=== PATIENT | female | born 1980 | race Caucasian/White ===

== ENCOUNTER → 2016-06-20 | Outpatient (CLI) | payer BC | LOC: MW.CHPM 09:22 | PROVIDERS: ATTEND Anesthesiology | DX: Z51.81 Encounter for therapeutic drug level monitoring (principal); Z79.891 Long term (current) use of opiate analgesic | CPT/HCPCS: 80305 ==

== ENCOUNTER → 2016-06-24 | Outpatient (CLI) | payer BC ==
--- NOTE | 2016-06-28 08:43 | CR ---
EXAMINATION: Cervical spine HISTORY: Pain COMPARISON: MRI dated 02/01/2012 TECHNIQUE: AP and lateral views FINDINGS/IMPRESSION: The cervical spinal alignment appears normal, the vertebral body heights and di sc spaces appear well maintained. Minimal marginal osteophytes are noted. The prevertebral soft tiss ues appear normal.
--- NOTE | 2016-06-28 09:31 | MR ---
EXAMINATION: MRI cervical spine without contrast HISTORY: Pain COMPARISON: 02/01/2012 TECHNIQUE: Multiplanar and multisequence images obtained of the cervical spine without contrast. FINDINGS: The cervical spinal alignment is normal. The vertebral body heights appear well maintained . There is no abnormal bone marrow signal. The cervical spinal cord signal is normal. The prevertebr al soft tissues are within normal limits. C2-C3: Unremarkable. C3-C4: Tiny diffuse disc bulge without significant spinal canal or neural foraminal stenosis. C4-C5: Tiny diffuse disc bulge without significant spinal canal or neural foraminal stenosis. C5-C6: Small to moderate diffuse disc bulge with mild spinal canal stenosis. Mild bilateral neural f oraminal stenosis. C6-C7: Small diffuse disc bulge without significant spinal canal stenosis. Minimal bilateral neural foraminal stenosis. C7-T1: Unremarkable. IMPRESSION: 1. Mild multilevel degenerative disc disease noted within the cervical spine without significant susy nges. Individual details above.
== END | disposition home or self-care (01) ==
LOC: MW.MRI 15:36
PROVIDERS: ATTEND Anesthesiology
DX: M50.30 Other cervical disc degeneration, unspecified cervical region (principal); M54.2 Cervicalgia; M12.88 Other specific arthropathies, not elsewhere classified, other specified site; M50.31 Other cervical disc degeneration, high cervical region
CPT/HCPCS: 72040; 72040-26; 72141; 72141-26

== ENCOUNTER → 2016-08-04 | Outpatient (CLI) | payer BC ==
--- NOTE | 2016-08-04 15:31 | CR ---
EXAMINATION: The lumbar spine HISTORY: Low back pain COMPARISON: None TECHNIQUE: AP, lateral, flexion and extension images FINDINGS: The lumbar spinal alignment is normal. The vertebral body heights and disc spaces appear w ell-maintained. Bone mineralization is normal. The SI joints are symmetric. Alignment and range of m otion appear normal with flexion and extension. IMPRESSION: Grossly unremarkable lumbar spine.
== END ==
LOC: MW.CHPM 08:55
PROVIDERS: ATTEND Anesthesiology
DX: Z51.81 Encounter for therapeutic drug level monitoring (principal); Z79.891 Long term (current) use of opiate analgesic; M54.5 Low back pain
CPT/HCPCS: 72110; 72110-26; 80305

== ENCOUNTER 2016-12-08 11:47 | Day surgery (SDC) | payer BC ==
[~2016-12-08 11:47] MED LIST: Betamethasone Acetate/Betamethasone Sod Phosphate 30 MG/5 ML MDV ONE; Lidocaine 2% 5 ML SDV ONE; Ropivacaine 0.5% 5 MG/ML 30 ML SDV ONE
--- NOTE | 2017-01-23 11:14 | OR ---
SURGEON: Cydney Grimaldo D.O. DATE OF PROCEDURE: 12/08/2016 OR STAFF: 1. Gwyn Fung RN. 2. Gwyn Sevilla RN. 3. Emmanuel Abebe, RT. REAL TIME ANALYST: Gwyn Fung RN; Gwyn Sevilla, RN; and Emmanuel Abebe, RT. WOUND CLASSIFICATION: Class I PREOPERATIVE DIAGNOSES: 1. Cervical facet arthropathy. 2. Chronic neck pain. 3. Cervical degenerative disk disease, multilevel. POSTOPERATIVE DIAGNOSES: 1. Cervical facet arthropathy. 2. Chronic neck pain. 3. Cervical degenerative disk disease, multilevel. PROCEDURES PERFORMED: 1. Right C3, C4, and C5 medial branch blocks. 2. Fluoroscopic guidance for needle placement. 3. Local with oral Valium for sedation. SCREENING QUESTIONS: The patient answered "No" to all the following questions: 1. Are you allergic to iodine, Betadine or latex? 2. Do you have a bleeding disorder? 3. Are you on anti-inflammatories or blood thinners? 4. Do you have any current local or systemic infections? MEDICAL NECESSITY: This is a patient with chronic low back pain who comes in for the above diagnostic procedure. This procedure is being performed in accordance with national guidelines written by the [employer]; please see medical necessity note in chart. DESCRIPTION OF PROCEDURE: The patient had the procedure thoroughly explained including risks, benefits and alternatives. Consent was signed in my clinic indicating understanding and willingness to proceed. The patient presented to [facility] and was escorted to the dressing room to disrobe and change into a hospital gown. Preoperative history and screening were performed by my nurse. Vital signs were taken and stable. The patient reported that Valium 10 milligrams was taken prior to the procedure. The patient was brought back to the procedure room and placed in the prone position on the procedure room table on the [facility] table. A pillow was placed under the legs in for patient comfort. The posterior neck was prepped with ChloraPrep and sterilely draped. All personnel in the procedure room were dressed in appropriate attire including surgical scrubs, head and shoe covers. This was to ensure sterility while in the treatment room. During the time fluoroscopy was in use all personnel in the operating room wore lead garcia with thyroid collars. Sterile technique was used during the procedure. The fluoroscope was positioned to provide AP/Lateral and then right oblique views. Then the right C3 medial branch block was begun by anesthetizing the skin and soft tissues with 2 cubic centimeters of 2% Preservative-Free Lidocaine with a 25-gauge 1.5 inch needle. There were no signs of infection at the site of needle skin insertions. Using fluoroscopic guidance a sterile 22-gauge 3.0 inch spinal needle was positioned at the midpoint of the waist of the articular pillar,parallel to the medial branch. Precise needle placement was confirmed by fluoroscopy and 0.2 cubic centimeters of IsoVue-200 contrast dye which wasinjected through microbore tubing under live fluoroscopy and showed no intravascular flow pattern and adequate flow over the target C3 medial branch. Then 0.5 cubic centimeters of celestone and 0.5% Ropivacaine Preservative-Free was injected slowly without complications after negative aspiration. Then the fluoroscope was positioned to provide a right oblique view for the right C4 medial branch. This was begun by anesthetizing the skin and soft tissues. The fluoroscope was positioned and a sterile 22-gauge 3.0 inch needle was positioned at the midpoint of the waist of the articular pillar, parallel to the medial branch. Precise needle placement was confirmed by fluoroscopy. Then 0.2 cubic centimeters of IsoVue-200 contrast dye was injected through microbore tubing under live fluoroscopy and showed no intravascular flow pattern and adequate flow over the target medial branch. After negative aspiration, 0.5 cubic centimeters of celestone and 0.5% Ropivacaine was injected without complications. The fluoroscope was then positioned to provide a right C5 medial branch block. This was begun by anesthetizing the skin and soft tissues. Then using fluoroscopic guidance, a sterile 22-gauge 3.5 inch spinal needle was positioned at the midpoint of the waist of the articular pillar, parallel to the medial branch. Precise needle placement was confirmed by fluoroscopy in AP and oblique views, and 0.2 cubic centimeters of IsoVue-200 contrast dye was injected through microbore tubing under live fluoroscopy and showed no intravascular flow pattern and adequate flow over the target nerves. After negative aspiration, 0.5 cubic centimeters of celestone and 0.5% Ropivacaine was injected. No complications were noted. The procedure was well tolerated and vital signs were stable during and after the procedure. The staff escorted the patient to the recovery area. The patient was given both oral and written discharge and followup instructions. The patient will follow up with a pain diary which will be evaluated over this evening doing things that would normally cause pain. We will evaluate the efficacy of the diagnostic cervical medial branch blocks as the patient will follow up in the clinic the next day. The patient was given both oral and written discharge and followup instructions. The patient voiced understanding including understanding of those signs and symptoms that would require emergency care and knows how to contact the office if there are any questions or concerns in the meantime. PREOPERATIVE PAIN: 09/26. POSTOPERATIVE PAIN: 04/29. CED / ANGELINA /[id number] AIRAM
== END 2016-12-08 13:52 | disposition home or self-care (01) ==
LOC: MW.SDS 11:47
PROVIDERS: ATTEND Anesthesiology
DX: G89.29 Other chronic pain (principal); M54.2 Cervicalgia; M50.31 Other cervical disc degeneration, high cervical region; M12.88 Other specific arthropathies, not elsewhere classified, other specified site; F32.9 Major depressive disorder, single episode, unspecified; F41.9 Anxiety disorder, unspecified; Z79.891 Long term (current) use of opiate analgesic; Z88.0 Allergy status to penicillin; Z88.2 Allergy status to sulfonamides; Z79.899 Other long term (current) drug therapy; Z98.890 Other specified postprocedural states
CPT/HCPCS: 64450; 64490; 64491; 81025; J0702; J2795

== ENCOUNTER 2017-08-01 21:18 | Emergency (ER) | payer BC ==
--- NOTE | 2017-08-01 21:49 | EDM.PDOC ---
ED HPI GENERAL MEDICAL PROBLEM - General Chief Complaint: Genitourinary Problem Stated Complaint: POSSIBLE UTI Time Seen by Provider: 08/01/17 21:49 Source of Information: Reports: Patient - History of Present Illness INITIAL COMMENTS - FREE TEXT/NARRATIVE: HISTORY AND PHYSICAL: History of present illness: []A shunt presents with urine frequency and dysuria for 3 days increasing in severity no fever nausea vomiting chills sweats Review of systems: As per history of present illness and below otherwise all systems reviewed and negative. Past medical history: As per history of present illness and as reviewed below otherwise noncontributory. Surgical history: As per history of present illness and as reviewed below otherwise noncontributory. Social history: No reported history of drug or alcohol abuse. Family history: As per history of present illness and as reviewed below otherwise noncontributory. Physical exam: HEENT: Atraumatic, normocephalic, pupils reactive, negative for conjunctival pallor or scleral icterus, mucous membranes moist, throat clear, neck supple, nontender, trachea midline. Lungs: Clear to auscultation, breath sounds equal bilaterally, chest nontender. Heart: S1S2, regular, negative for clicks, rubs, or JVD. Abdomen: Soft, nondistended, nontender. Negative for masses or hepatosplenomegaly. Negative for costovertebral tenderness. Pelvis: Stable nontender. Genitourinary: Deferred. Rectal: Deferred. Extremities: Atraumatic, negative for cords or calf pain. Neurovascular unremarkable. Neuro: Awake, alert, oriented. Cranial nerves II through XII unremarkable. Cerebellum unremarkable. Motor and sensory unremarkable throughout. Exam nonfocal. Diagnostics: [UA with culture hCG ] Therapeutics: [Cipro 500 mg by mouth twice a day #20 no refill first dose now ] Impression: [UTI ] Definitive disposition and diagnosis as appropriate pending reevaluation and review of above. suprapubic Pain Score (Numeric/FACES): 7 - Related Data Allergies Allergy/AdvReac Type Severity Reaction Status Date / Time Penicillins Allergy Cannot Verified 08/01/17 21:23 Remember Sulfa (Sulfonamide Allergy Rash Verified 08/01/17 21:23 Antibiotics) Home Meds: Home Meds Hydrocodone/Acetaminophen [Hydrocodon-Acetaminoph 7.5-325] 1 tab PO ASDIRECTED PRN 08/01/17 [History] Vilazodone Hydrochloride [Viibryd] 40 mg PO DAILY 08/01/17 [History] Past Medical History Musculoskeletal History: Reports: Fibromyalgia, Other (See Below) Other Musculoskeletal History: degenerative disc on neck - Past Surgical History Musculoskeletal Surgical History: Reports: Other (See Below) Other Musculoskeletal Surgeries/Procedures:: neck sx Social & Family History - Family History Family Medical History: Noncontributory ED ROS GENERAL - Review of Systems Review Of Systems: ROS reveals no pertinent complaints other than HPI. ED EXAM, GENERAL - Physical Exam Exam: See Below Course - Vital Signs Last Recorded V/S: Last Vital Signs Temp 97.5 F 08/01/17 21:18 Pulse 84 08/01/17 21:18 Resp 18 08/01/17 21:18 BP 113/70 08/01/17 21:18 Pulse Ox 97 08/01/17 21:18 - Orders/Labs/Meds Orders: Active Orders 24 hr Category Date Time Status CULTURE URINE [RM] Stat Lab 08/01/17 21:35 Received HCG QUALITATIVE,URINE [URCHEM] Stat Lab 08/01/17 21:35 Ordered UA W/MICROSCOPIC [URIN] Stat Lab 08/01/17 21:35 Ordered Labs: Laboratory Tests 08/01/17 08/01/17 Range/Units 21:35 21:35 Urine Color YELLOW Urine Appearance CLEAR Urine pH 6.0 (5.0-8.0) Ur Specific [place] <= 1.005 (1.001-1.035) Urine Protein NEGATIVE (NEGATIVE) mg/dL Urine Glucose (UA) NEGATIVE (NEGATIVE) mg/dL Urine Ketones NEGATIVE (NEGATIVE) mg/dL Urine Occult Blood LARGE H (NEGATIVE) Urine Nitrite NEGATIVE (NEGATIVE) Urine Bilirubin NEGATIVE (NEGATIVE) Urine Urobilinogen 0.2 (<2.0) EU/dL Ur Leukocyte Esterase LARGE (NEGATIVE) Urine RBC 5-7 (0-2/HPF) Urine WBC 20-25 (0-5/HPF) Ur Epithelial Cells OCCASIONAL (NONE-FEW) Urine Bacteria FEW (NEGATIVE) Urine HCG, Qual NEGATIVE (NEGATIVE) Departure - Departure Time of Disposition: 22:03 Disposition: Home, Self-Care 01 Condition: Good Clinical Impression: UTI, Urinary tract infectious disease - Discharge Information Referrals: Pretty Manzano [employer]ARFINGER CHIEF [Primary Care Provider] - Forms: ED Department Discharge Additional Instructions: The following information is given to patients seen in the emergency department who are being discharged to home. This information is to outline your options for follow-up care. We provide all patients seen in our emergency department with a follow-up referral. The need for follow-up, as well as the timing and circumstances, are variable depending upon the specifics of your emergency department visit. If you don't have a primary care physician on staff, we will provide you with a referral. We always advise you to contact your personal physician following an emergency department visit to inform them of the circumstance of the visit and for follow-up with them and/or the need for any referrals to a consulting specialist. The emergency department will also refer you to a specialist when appropriate. This referral assures that you have the opportunity for follow-up care with a specialist. All of these measure are taken in an effort to provide you with optimal care, which includes your follow-up. Under all circumstances we always encourage you to contact your private physician who remains a resource for coordinating your care. When calling for follow-up care, please make the office aware that this follow-up is from your recent emergency room visit. If for any reason you are refused follow-up, please contact the [facility] emergency department at and asked to speak to the emergency department charge nurse. - My Orders Last 24 Hours: My Active Orders 08/01/17 21:35 CULTURE URINE [RM] Stat HCG QUALITATIVE,URINE [URCHEM] Stat UA W/MICROSCOPIC [URIN] Stat - Assessment/Plan Last 24 Hours: My Active Orders 08/01/17 21:35 CULTURE URINE [RM] Stat HCG QUALITATIVE,URINE [URCHEM] Stat UA W/MICROSCOPIC [URIN] Stat
[2017-08-01] MEDS ORDERED: Ciprofloxacin 500 MG Tab PO ONE (22:04)
== END 2017-08-01 22:32 | disposition home or self-care (01) ==
LOC: MW.ED 21:18
DX: N39.0 Urinary tract infection, site not specified (principal); Z79.899 Other long term (current) drug therapy; Z88.2 Allergy status to sulfonamides; Z88.0 Allergy status to penicillin
CPT/HCPCS: 81001; 81025; 87086; 87088; 87186; 99283; A9270

== ENCOUNTER 2018-12-05 22:08 | Emergency (ER) | payer BC ==
--- NOTE | 2018-12-05 23:20 | EDM.PDOC ---
ED HPI GENERAL MEDICAL PROBLEM - General Chief Complaint: Genitourinary Problem Stated Complaint: UTI Time Seen by Provider: 12/05/18 23:19 - History of Present Illness INITIAL COMMENTS - FREE TEXT/NARRATIVE: HISTORY AND PHYSICAL: History of present illness: The patient is a 37-year-old female with a history of frequent UTIs, occurring every 3 months or so, who presents with UTI symptoms. She has had no fevers chills flank pain abdominal pain nausea or vomiting. Review of systems: As per history of present illness and below otherwise all systems reviewed and negative. Past medical history: As per history of present illness and as reviewed below otherwise noncontributory. Surgical history: As per history of present illness and as reviewed below otherwise noncontributory. Social history: No reported history of drug or alcohol abuse. Family history: As per history of present illness and as reviewed below otherwise noncontributory. Physical exam: HEENT: Atraumatic, normocephalic, negative for conjunctival pallor or scleral icterus, mucous membranes moist, throat clear, neck supple, nontender, trachea midline. Lungs: Clear to auscultation, breath sounds equal bilaterally, chest nontender. Heart: S1S2, regular and rhythm no overt murmurs Abdomen: Soft, nondistended, nontender. Negative for masses or hepatosplenomegaly. Negative for costovertebral tenderness. Pelvis: Stable nontender. Genitourinary: Deferred. Rectal: Deferred. Extremities: Atraumatic, negative for cords or calf pain. Neurovascular unremarkable. Neuro: Awake, alert, oriented. Cranial nerves II through XII unremarkable. Cerebellum unremarkable. Motor and sensory unremarkable throughout. Exam nonfocal. Diagnostics: UA with micro-UCG urine culture Therapeutics: Nitrofurantoin Pyridium The patient wanted [facility] for these drugs but those meds are not in there and she is leaving on a plane first thing in the morning. I will give her 1 dose here and write a prescription Impression: UTI Definitive disposition and diagnosis as appropriate pending reevaluation and review of above. hypogastric Pain Score (Numeric/FACES): 7 - Related Data Allergies Allergy/AdvReac Type Severity Reaction Status Date / Time Penicillins Allergy Cannot Verified 12/05/18 22:32 Remember Sulfa (Sulfonamide Allergy Rash Verified 12/05/18 22:32 Antibiotics) Home Meds: Home Meds . [No Known Home Meds] 12/05/18 [History] Past Medical History - Past Health History Medical/Surgical History: Denies Medical/Surgical History HEENT History: Reports: Impaired Vision, Other (See Below) Other HEENT History: wears glasses Musculoskeletal History: Reports: Fibromyalgia, Other (See Below) Other Musculoskeletal History: degenerative disc on neck - Past Surgical History Musculoskeletal Surgical History: Reports: Other (See Below) Other Musculoskeletal Surgeries/Procedures:: neck sx Social & Family History - Family History Family Medical History: Noncontributory - Tobacco Use Smoking Status *Q: Never Smoker - Recreational Drug Use Recreational Drug Use: No ED ROS GENERAL - Review of Systems Review Of Systems: ROS reveals no pertinent complaints other than HPI. ED EXAM, GENERAL - Physical Exam Exam: See Below (See dictation) Course - Vital Signs Last Recorded V/S: Last Vital Signs Temp 36.3 C 12/05/18 22:20 Pulse 99 12/05/18 22:20 Resp 18 12/05/18 22:20 BP 114/70 12/05/18 22:20 Pulse Ox 95 12/05/18 22:20 - Orders/Labs/Meds Orders: Active Orders 24 hr Category Date Time Status CULTURE URINE [RM] Stat Lab 12/05/18 22:30 Received Nitrofurantoin Adams/Macrocryst [Macrobid] Med 12/05/18 23:23 Once 100 mg PO ONETIME ONE Phenazopyridine [Pyridium] Med 12/05/18 23:24 Once 200 mg PO ONETIME ONE Medication Orders Phenazopyridine HCl (Pyridium) 200 mg PO ONETIME ONE Stop: 12/05/18 23:25 Labs: Laboratory Tests 12/05/18 12/05/18 Range/Units 22:30 22:30 Urine Color YELLOW Urine Appearance CLEAR Urine pH 8.0 (5.0-8.0) Ur Specific [place] 1.010 (1.001-1.035) Urine Protein 100 H (NEGATIVE) mg/dL Urine Glucose (UA) NEGATIVE (NEGATIVE) mg/dL Urine Ketones NEGATIVE (NEGATIVE) mg/dL Urine Occult Blood LARGE H (NEGATIVE) Urine Nitrite POSITIVE H (NEGATIVE) Urine Bilirubin NEGATIVE (NEGATIVE) Urine Urobilinogen 4.0 H (<2.0) EU/dL Ur Leukocyte Esterase MODERATE H (NEGATIVE) Urine RBC 20-25 (0-2/HPF) Urine WBC 25-30 (0-5/HPF) Ur Epithelial Cells RARE (NONE-FEW) Urine Bacteria 1+ H (NEGATIVE) Urine HCG, Qual NEGATIVE (NEGATIVE) Meds: Medications Generic Name Dose Route Start Last Admin Trade Name Freq PRN Reason Stop Dose Admin Phenazopyridine HCl 200 mg 12/05/18 23:24 Pyridium PO 12/05/18 23:25 ONETIME ONE Discontinued Medications Generic Name Dose Route Start Last Admin Trade Name Freq PRN Reason Stop Dose Admin Nitrofurantoin Macrocrystals 100 mg 12/05/18 23:23 Macrobid PO 12/05/18 23:24 ONETIME ONE Departure - Departure Time of Disposition: 23:26 Disposition: Home, Self-Care 01 Condition: Good Clinical Impression: UTI, Urinary tract infectious disease - Discharge Information Referrals: PCP,None [Primary Care Provider] - Forms: ED Department Discharge Additional Instructions: The following information is given to patients seen in the emergency department who are being discharged to home. This information is to outline your options for follow-up care. We provide all patients seen in our emergency department with a follow-up referral. The need for follow-up, as well as the timing and circumstances, are variable depending upon the specifics of your emergency department visit. If you don't have a primary care physician on staff, we will provide you with a referral. We always advise you to contact your personal physician following an emergency department visit to inform them of the circumstance of the visit and for follow-up with them and/or the need for any referrals to a consulting specialist. The emergency department will also refer you to a specialist when appropriate. This referral assures that you have the opportunity for followup care with a specialist. All of these measure are taken in an effort to provide you with optimal care, which includes your followup. Under all circumstances we always encourage you to contact your private physician who remains a resource for coordinating your care. When calling for followup care, please make the office aware that this follow-up is from your recent emergency room visit. If for any reason you are refused follow-up, please contact the [facility] emergency department at and ask to speak to the emergency department charge nurse. [facility]- Internal Medicine and Family [address] [address] Push hydration and take medications as prescribed. He will be contacted if the urine culture reveals any need to change had experienced. Please call and follow -up with your provider or one of hours for reevaluation further care and return to ER as needed and as discussed - My Orders Last 24 Hours: My Active Orders 12/05/18 22:30 CULTURE URINE [RM] Stat 12/05/18 23:23 Nitrofurantoin Adams/Macrocryst [Macrobid] 100 mg PO ONETIME ONE 12/05/18 23:24 Phenazopyridine [Pyridium] 200 mg PO ONETIME ONE - Assessment/Plan Last 24 Hours: My Active Orders 12/05/18 22:30 CULTURE URINE [RM] Stat 12/05/18 23:23 Nitrofurantoin Adams/Macrocryst [Macrobid] 100 mg PO ONETIME ONE 12/05/18 23:24 Phenazopyridine [Pyridium] 200 mg PO ONETIME ONE
[2018-12-05] MEDS ORDERED: Nitrofurantoin Monohydrate/Macrocrystalline 100 MG Cap PO ONE (23:23)
[2018-12-05] MEDS ORDERED: Phenazopyridine 200 MG Tab PO ONE (23:24)
== END 2018-12-05 23:35 | disposition home or self-care (01) ==
LOC: MW.ED 22:08
DX: N39.0 Urinary tract infection, site not specified (principal); Z88.0 Allergy status to penicillin; Z88.2 Allergy status to sulfonamides
CPT/HCPCS: 81001; 81025; 87086; 87088; 87186; 99283; A9270